=== PATIENT | male | born 1990 | race Caucasian/White ===

== ENCOUNTER 2017-05-16 14:21 | Emergency (ER) | payer MEDICAID, OTHER ==
[~2017-05-16] VITALS: Ht 182.9 cm; Wt 74.8 kg
[~2017-05-16 14:21] MED LIST: ALBUTEROL
[2017-05-16 14:23] VITALS: BP 132/75
== END 2017-05-16 15:17 | disposition home or self-care (01) ==
LOC: ED 15:00
DX: J45.31 Mild persistent asthma with (acute) exacerbation (principal)
CPT/HCPCS: 99283; J7512